=== PATIENT | male | born 1970 | race Caucasian/White ===

== ENCOUNTER 2021-05-26 11:39 | Emergency (ER) | payer SELFPAY ==
[~2021-05-26] VITALS: Ht 175.3 cm; Wt 81.6 kg
[2021-05-26 11:48] VITALS: BP_SYST 169
--- NOTE | 2021-05-26 11:51 | NUR ---
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 REPORTS THROBBING PAIN 10/10, RADIAL PULSE PRESENT. BLOOD CONTROLLED WITH PRESSURE. UNKNOWN LAST TETANUS. DR BOYD INFORMED.
--- NOTE | 2021-05-26 11:53 | NUR ---
DR BOYD IN ROOM FOR EXAM
[2021-05-26] MEDS ORDERED: DIPH-TET-PERTUS Vaccine 0.5 ML VIAL (ADACEL) I.M. ONE (12:00)
[2021-05-26] MEDS ORDERED: LIDOCAINE 1% 10 MG/ML, 20 ML MDV INJ ONE (12:30)
--- NOTE | 2021-05-26 12:37 | NUR ---
LAC TRAY AT BEDSIDE
[2021-05-26] MEDS ORDERED: CEPH-548 PO (12:51)
[2021-05-26] MEDS ORDERED: TRAM50TA2 PO (12:51)
[2021-05-26] MEDS ORDERED: cefTRIAXone 1 GM VIAL IM ONE (13:15)
--- NOTE | 2021-05-26 13:38 | NUR ---
Cleaned wound, dressed w. non-adherent gauze, & finger splint.
[2021-05-26 14:04] VITALS: BP_SYST 137
--- NOTE | 2021-05-26 14:06 | NUR ---
Patient given written and verbal discharge instructions and verbalizes understanding. ER MD discussed with patient the results and treatment provided. Patient in stable condition. ID arm band removed. Rx of tramadol, keflex given. Patient educated on pain management and to follow up with PMD. Pain Scale . Opportunity for questions provided and answered. Medication side effect fact sheet provided.
== END 2021-05-26 14:04 | disposition home or self-care (01) ==
LOC: SED 11:39
DX: S62.637A Displaced fracture of distal phalanx of left little finger, initial encounter for closed fracture (principal); Z79.899 Other long term (current) drug therapy; W27.0XXA Contact with workbench tool, initial encounter; Y93.89 Activity, other specified; Y92.89 Other specified places as the place of occurrence of the external cause; Y99.8 Other external cause status
CPT/HCPCS: 12002; 73140; 90471; 90715; 96372; 99284; J0696; J2001